=== PATIENT | male | born 1970 | race Caucasian/White ===

== ENCOUNTER 2020-12-21 16:05 | Emergency (ER) | payer SELFPAY ==
[~2020-12-21] VITALS: Ht 177.8 cm; Wt 66.4 kg
[2020-12-21 16:11] VITALS: BP 134/85
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
[2020-12-21 17:26] LABS: ALBUMIN 3.8 g/dL (3.4-5.0); ANION GAP 9 mmol/L (5-15); CALCIUM 9.6 mg/dL (8.5-10.1); CHLORIDE 104 mmol/L (98-107)
[2020-12-21 17:30] LABS: ALANINE AMINOTRANSFERASE 18 U/L (12-78); ALKALINE PHOSPHATASE 96 U/L (45-117); BASOPHILS % (AUTO) 0 % (0-1); BILIRUBIN,TOTAL 0.4 mg/dL (0.2-1.0); CREATININE 1.02 mg/dL (0.7-1.3); EOSINOPHILS % (AUTO) 1 % (1-7); LYMPHOCYTES % (AUTO) 20 % (22-44); MEAN CORPUSCULAR HEMOGLOBIN 31.4 pg (27.5-34.5); MEAN CORPUSCULAR HGB CONC 33.8 g/dL (33.2-36.2); MEAN PLATELET VOLUME 10.2 fL (7.4-10.4); MONOCYTES % (AUTO) 10 % (2-9); NEUTROPHILS % (AUTO) 69 % (42-75); PLATELET COUNT 253 x10^3/uL (130-400); RED BLOOD COUNT 5.06 x10^6/uL (4.38-5.82); RED CELL DISTRIBUTION WIDTH 13.3 % (9.4-14.8); TOTAL PROTEIN 7.5 g/dL (6.4-8.2)
[2020-12-21 17:33] LABS: MD NO
== END 2020-12-21 18:15 | disposition home or self-care (01) ==
LOC: ED 18:10
DX: L40.1 Generalized pustular psoriasis (principal); R21 Rash and other nonspecific skin eruption
CPT/HCPCS: 36415; 80053; 85025; 99283